=== PATIENT | female | born 2000 | race Caucasian/White ===

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

== ENCOUNTER → 2019-12-26 16:08 | Outpatient (CLI) | payer MEDICAID, SELFPAY ==
[2019-12-26 18:13] LABS: Prolactin 11.2 ng/mL
[2019-12-29 03:06] LABS: Chlamydia By Nucleic Acid AMP Negative (Negative)
[2019-12-29 06:31] LABS: Gonococcus By Nucleic Acid AMP Negative (Negative)
== END ==
PROVIDERS: Visit Provider Obstetrics & Gynecology
DX: O92.6 Galactorrhea (principal); Z11.3 Encounter for screening for infections with a predominantly sexual mode of transmission
CPT/HCPCS: 36415; 84146; 87491; 87591

== ENCOUNTER → 2020-01-05 14:52 | Outpatient (CLI) | payer MEDICAID, SELFPAY ==
--- NOTE | 2020-01-05 15:09 | US_ITS ---
STUDY: ULTRASOUND BREAST - LEFT REASON FOR EXAM: Female, 19 years old. Nipple discharge in the left breast. TECHNIQUE: Axial and longitudinal images of the LEFT breast were performed with a high resolution ultrasound transducer. # OF IMAGES: 35 COMPARISON: None. FINDINGS: LEFT Breast: The retroareolar region of the left breast was examined by ultrasound. There is evidence of a dilated retroareolar ducts. US/Breast Limited Unilateral IMPRESSION: Dilated retroareolar ducts. ASSESSMENT CATEGORY: BIRADS Category 2: Benign. A letter regarding these results will be sent to the patient by the facility within 30 days. Electronically Signed: Jean Pierre Cooper, at 15:34 EST , Service support ,
== END ==
PROVIDERS: Referring Provider Obstetrics & Gynecology; Visit Provider Obstetrics & Gynecology
DX: O92.6 Galactorrhea (principal)
CPT/HCPCS: 76642

== ENCOUNTER 2021-05-27 15:06 | Outpatient (CLI) | payer MEDICAID, SELFPAY ==
[2021-06-04 11:09] LABS: Chlamydia By Nucleic Acid AMP Negative (Negative)
[2021-06-04 12:30] LABS: Gonococcus By Nucleic Acid AMP Negative (Negative); HPV Reflexed? NOT INDICATED
== END 2021-05-27 23:59 | disposition home or self-care (01) ==
LOC: WOBLAB 15:08
PROVIDERS: Visit Provider Obstetrics & Gynecology
DX: Z12.4 Encounter for screening for malignant neoplasm of cervix (principal)
CPT/HCPCS: 87491; 87591; 88142

== ENCOUNTER → 2022-01-12 | Outpatient (CLI) | payer MEDICAID, SELFPAY ==
[2022-01-12 17:25] LABS: Absolute Lymphocyte Count 2.37 X10^3/uL (0.83-4.51); Absolute Neutrophil Count 7.9 X10^3/uL (2.0-7.7); Basophil# 0.04 X10^3/uL; Basophil% 0.4 % (0-1); Eosinophil# 0.07 X10^3/uL; Eosinophils% 0.6 % (0-5); Hematocrit 41.3 % (37-47); Hemoglobin 14.1 g/dL (12.0-15.0); Lymphocyte # 2.37 X10^3/ul (0.83-4.51); Lymphocyte % 21.1 % (19-41); Mean Corp Hgb Conc 34.1 g/dL (32-36); Mean Corpuscular Hgb 28.5 pg (27.0-32.0); Mean Corpuscular Volume 83.4 fL (81-99); Mean Platelet Vol. 9.3 fl (6.2-12.0); Monocyte# 0.77 X10^3/uL; Monocyte% 6.9 % (0-10); NRBC Flagged by Analyzer 0 % (0-5); Neutrophil # 7.94 X10^3/uL (2.7-7.7); Neutrophil % 70.6 % (47-70); Platelet Count 242 K/mm3 (150-450); RBC Distribution Width CV 12.7 % (11.6-14.6); RBC Distribution Width SD 38.1 fl (35.1-43.9); Red Blood Count 4.95 M/mm3 (4.2-5.4); White Blood Count 11.2 K/mm3 (4.4-11.0)
[2022-01-13 08:58] LABS: HIV - WCH Non-Reactive (Nonreactive); Hepatitis B Surface Antigen Non-Reactive (Nonreactive); Hepatitis C Antibody Non-Reactive (Nonreactive); Rubella IgG Reactive (Nonreactive); Syphilis Antibodies Non-reactive
[2022-01-14 17:03] LABS: V-Zoster IgG (Immunity) 250 index (Immune >165)
[2022-01-14 21:07] LABS: Chlamydia By Nucleic Acid AMP Negative (Negative)
[2022-01-15 15:45] LABS: Gonococcus By Nucleic Acid AMP Negative (Negative)
== END | disposition home or self-care (01) ==
LOC: WOBLAB 16:18
PROVIDERS: Visit Provider Obstetrics & Gynecology
DX: Z34.81 Encounter for supervision of other normal pregnancy, first trimester (principal)
CPT/HCPCS: 36415; 85025; 86703; 86762; 86780; 86787; 86803; 87086; 87088; 87340; 87491; 87591

== ENCOUNTER → 2022-04-09 | Outpatient (CLI) | payer MEDICAID, SELFPAY ==
--- NOTE | 2022-04-09 12:49 | US_ITS ---
STUDY: SECOND AND THIRD TRIMESTER OBSTETRICAL ULTRASOUND REASON FOR EXAM: Female, 21 years old ANATOMY LMP: 11/08/2021. TECHNIQUE: Transabdominal TECHNICAL QUALITY: Adequate. PRIOR ULTRASOUND: None. FINDINGS: There is a single intrauterine fetus. The fetus is in a breech presentation. There is demonstrated cardiac activity with a heart rate of 145 bpm. There is a normal amniotic fluid volume. The largest amniotic fluid pocket measures 5.6 cm. The amniotic fluid index (YESICA) is within normal limits. The placenta is fundal and posterior in location. There are Grade 0 placental changes. The cervix measures 5 cm in length. The bilateral adnexal regions were visualized. There is a 4 cm x 4.2 cm x 4.4 cm right ovarian cyst. BIOMETRY: BPD: 4.93 cm: 20 weeks, 6 days HC: 19.42 cm: 21 weeks, 5 days AC: 18.53 cm: 23 weeks, 2 days FL: 3.57 cm: 27 weeks, 2 days CI: 71% FL/BPD: 72% FL/HC: FL/AC: 19% HC/AC: 1.05 age by current US: 21 weeks, 4 days. EHSAN by current US: 08/16/2022. Estimated weight: 492 grams, +/- 74 grams, 73 %. Age by LMP: 21 weeks, 5 days. EHSAN by LMP: 12/15/2022. ANATOMY: Gender: Female Cranium: Normal lateral ventricles. Normal choroid plexus. Normal cerebellum. Normal cisterna magna. Normal face, nose and lips. Chest: Normal 4-chamber heart. Abdomen/Pelvis: Normal diaphragm. Normal stomach. Normal abdominal wall. Normal cord insertion. Normal 3 vessel cord. Normal kidneys. Normal bladder. Spine: Normal cervical spine. Normal thoracic spine. Normal lumbar spine. Normal sacrum. Extremities: Normal bilateral upper extremities. Normal bilateral lower extremities. US/OB Anatomy Scan IMPRESSION: Single live uterine gestation with mean gestational age of 21 weeks and 4 days. There is a 4 cm x 4.2 cm x 4.4 cm right ovarian cyst. Electronically Signed: Jean Pierre Cooper MD at 15:31 EST ,
== END | disposition home or self-care (01) ==
PROVIDERS: Visit Provider Obstetrics & Gynecology
DX: Z34.82 Encounter for supervision of other normal pregnancy, second trimester (principal); Z3A.20 20 weeks gestation of pregnancy
CPT/HCPCS: 76805

== ENCOUNTER → 2022-05-07 | Outpatient (CLI) | payer MEDICAID, SELFPAY ==
[2022-05-07 17:13] LABS: Absolute Lymphocyte Count 1.74 X10^3/uL (0.83-4.51); Absolute Neutrophil Count 7.7 X10^3/uL (2.0-7.7); Basophil# 0.04 X10^3/uL; Basophil% 0.4 % (0-1); Eosinophil# 0.09 X10^3/uL; Eosinophils% 0.9 % (0-5); Hematocrit 36.9 % (37-47); Hemoglobin 12.8 g/dL (12.0-15.0); Lymphocyte # 1.74 X10^3/ul (0.83-4.51); Lymphocyte % 16.6 % (19-41); Mean Corp Hgb Conc 34.7 g/dL (32-36); Mean Corpuscular Volume 86.6 fL (81-99); Mean Platelet Vol. 9.4 fl (6.2-12.0); Monocyte# 0.74 X10^3/uL; NRBC Flagged by Analyzer 0 % (0-5); Neutrophil # 7.74 X10^3/uL (2.7-7.7); Neutrophil % 73.7 % (47-70); Platelet Count 213 K/mm3 (150-450); RBC Distribution Width CV 13.4 % (11.6-14.6); RBC Distribution Width SD 41.7 fl (35.1-43.9); Red Blood Count 4.26 M/mm3 (4.2-5.4); White Blood Count 10.5 K/mm3 (4.4-11.0)
[2022-05-07 17:56] LABS: Glucose Challenge Gest 1H 50g 132 mg/dL (70-140)
[2022-05-07 18:27] LABS: Syphilis Antibodies Non-reactive
== END | disposition home or self-care (01) ==
LOC: WOBLAB 16:34
PROVIDERS: Visit Provider Obstetrics & Gynecology
DX: Z34.82 Encounter for supervision of other normal pregnancy, second trimester (principal)
CPT/HCPCS: 36415; 82950; 85025; 86780

== ENCOUNTER → 2022-07-22 | Outpatient (CLI) | payer MEDICAID, SELFPAY ==
[2022-07-22 17:02] LABS: Hematocrit 36.1 % (37-47); Hemoglobin 12.3 g/dL (12.0-15.0); Mean Corp Hgb Conc 34.1 g/dL (32-36); Mean Corpuscular Hgb 28.1 pg (27.0-32.0); Mean Corpuscular Volume 82.6 fL (81-99); Mean Platelet Vol. 10.5 fl (6.2-12.0); Platelet Count 216 K/mm3 (150-450); RBC Distribution Width SD 39.4 fl (35.1-43.9); Red Blood Count 4.37 M/mm3 (4.2-5.4); White Blood Count 9.4 K/mm3 (4.4-11.0)
== END | disposition home or self-care (01) ==
LOC: WOBLAB 16:09
PROVIDERS: Visit Provider Obstetrics & Gynecology
DX: Z36.85 Encounter for antenatal screening for Streptococcus B (principal)
CPT/HCPCS: 36415; 85027; 87081

== ENCOUNTER 2022-08-13 07:10 | Inpatient (IN) | payer MEDICAID, SELFPAY ==
[2022-08-13] VITALS (48 sets, daily range): BP systolic 99–154; BP diastolic 49–92; PULSE 68–128; TEMP 36.3–36.8; O2SAT 83–100; BMI 37.9
[2022-08-13] MEDS: Lactated Ringers 1,000 ML 50 ML IV (08:30)
--- NOTE | 2022-08-13 08:44 | PCM.HP.BLA ---
History and Physical Date of Admission: 08/13/22 Chief complaint: Induction of labor at term History present illness: 22-year-old at 39 weeks and 5 days with EHSAN 08/15/2022 arrives for induction of labor at term. Denies headache, vision changes, chest pain, shortness of breath, nausea vomit, right upper quadrant pain. Patient states good movement. is complicated by LGA, BMI 37 Obstetric history: G1: 41-week female 6 pounds 13 ounces G2: Current Past medical history: None Medications: vitamin Allergies: No known drug allergies Past surgical history: Tonsils and adenoids Social history: Denies smoking, alcohol use, drug use Family history: Denies history DVT or PE Review of systems: Besides above pertinent positives a full view of systems was performed and found to be negative Physical exam: Vitals: Pending General: Normal appearing no acute distress HEENT: Normocephalic atraumatic no cervical lymphadenopathy Cardiac/respiratory: No successor muscles, nonlabored breathing Abdomen: Soft, nontender, gravid Extremities: No peripheral edema normal peripheral pulses Psych: Normal affect and remainder nonpressured speech Lab: Pending Assessment plan: 22-year-old at 39 weeks and 5 days arrives for induction of labor at term Admit labor and delivery CEFM GBS negative Cytotec induction LGA: Discussed baby's weight and given options for induction versus primary section risk benefits alternatives. Discussed risks for LGA and discussed risk for shoulder dystocia. Patient states understanding wish to proceed with induction of labor Anesthesia to see
[2022-08-13] MEDS: miSOPROStol 25 MCG TABLET VAGINAL (09:07)
[2022-08-13 09:15] LABS: Absolute Lymphocyte Count 1.74 X10^3/uL (0.83-4.51); Absolute Neutrophil Count 6.1 X10^3/uL (2.0-7.7); Basophil# 0.03 X10^3/uL; Basophil% 0.3 % (0-1); Eosinophil# 0.06 X10^3/uL; Eosinophils% 0.7 % (0-5); Hematocrit 34.5 % (37-47); Hemoglobin 11.6 g/dL (12.0-15.0); Lymphocyte # 1.74 X10^3/ul (0.83-4.51); Lymphocyte % 19.5 % (19-41); Mean Corp Hgb Conc 33.6 g/dL (32-36); Mean Corpuscular Hgb 27.4 pg (27.0-32.0); Mean Corpuscular Volume 81.4 fL (81-99); Mean Platelet Vol. 10.8 fl (6.2-12.0); Monocyte# 0.96 X10^3/uL; Monocyte% 10.8 % (0-10); NRBC Flagged by Analyzer 0 % (0-5); Neutrophil # 6.08 X10^3/uL (2.7-7.7); Neutrophil % 68.1 % (47-70); Platelet Count 208 K/mm3 (150-450); RBC Distribution Width CV 13.3 % (11.6-14.6); RBC Distribution Width SD 39.3 fl (35.1-43.9); Red Blood Count 4.24 M/mm3 (4.2-5.4); White Blood Count 8.9 K/mm3 (4.4-11.0)
[2022-08-13 09:39] LABS: Syphilis Antibodies Non-reactive
[2022-08-13] MEDS: Oxytocin 15 Units/NS 250ml 15 UNITS/250 ML IV.SOLN 2 UNITS IV (13:22)
[2022-08-13] MEDS: LACTATED RINGERS 500 ML 999 ML IV (15:34)
[2022-08-13] MEDS: fentaNYL-bupivacaine (epidural) 100 ML BAG EPIDURAL (16:55)
--- NOTE | 2022-08-13 17:25 | PN.OBGYN_ITS ---
Subjective Subjective Patient now comfortable with epidural Objective Data Objective Data Vital Signs: Vital Signs Temp Pulse BP Pulse Ox 98.2 F 93 141/61 H 83 08/13/22 13:20 08/13/22 16:59 08/13/22 16:59 08/13/22 17:00 Weight: 228 lb Body Mass Index (BMI) 37.9 Intake & Output: Intake and Output for Last 24 Hours 08/11/22 08/12/22 08/13/22 23:59 23:59 23:59 Intake Total 1366.80 / 1366.80 Output Total 200 / 200 Balance 1166.80 / 1166.80 Lab / Micro Data Result Diagrams: 08/13/22 09:04 Labs: Laboratory Results - last 24 hr 08/13/22 08:30: WBC Cancelled, Corrected WBC Cancelled, RBC Cancelled, Hgb Cancelled, Hct Cancelled, MCV Cancelled, MCH Cancelled, MCHC Cancelled, RDW Std Deviation Cancelled, RDW Coeff of Margarita Cancelled, Plt Count Cancelled, MPV Cancelled, Immature Gran % (Auto) Cancelled, Neut % (Auto) Cancelled, Lymph % (Auto) Cancelled, [place] % (Auto) Cancelled, Eos % (Auto) Cancelled, Baso % (Auto) Cancelled, Absolute Neuts (auto) Cancelled, Absolute Lymphs (auto) Cancelled, Total Counted Cancelled, Neutrophils % (Manual) Cancelled, Band Neutrophils % Cancelled, Lymphocytes % (Manual) Cancelled, Monocytes % (Manual) Cancelled, Eosinophils % (Manual) Cancelled, Basophils % (Manual) Cancelled, Metamyelocytes % Cancelled, Myelocytes % Cancelled, Promyelocytes % Cancelled, Blast Cells % Cancelled, Plasma Cell % (Manual) Cancelled, Other Cells % Cancelled, Nucleated RBC % Cancelled, Nucleated RBCs/100 WBC Cancelled, Differential Comment Cancelled, Diff Path Review Cancelled, Hypersegmented Neuts Cancelled, Atypical Lymphocytes Cancelled, Reactive Lymphocytes Cancelled, Smudge Cells Cancelled, Toxic Granulation Cancelled, Toxic Vacuolation Cancelled, Dohle Bodies Cancelled, Perry Rods Cancelled, Platelet Estimate Cancelled, Plt Morphology Comment Cancelled, RBC Morphology Cancelled, Polychromasia Cancelled, Hypochromasia Cancelled, Poikilocytosis Cancelled, Basophilic Stippling Cancelled, Anisocytosis Cancelled, Microcytosis Cancelled, Macrocytosis Ca ncelled, Spherocytes Cancelled, Sickle Cells Cancelled, Target Cells Cancelled, Tear Drop Cells Cancelled, Ovalocytes Cancelled, Stomatocytes Cancelled, [place] Bodies Cancelled, [place] Cells Cancelled, Bite Cells Cancelled, Crenated Cell Cancelled, Acanthocytes (Spur) Cancelled, Rouleaux Cancelled, Schistocytes Cancelled 08/13/22 08:30: Blood Type O POSITIVE, Antibody Screen NEGATIVE 08/13/22 08:30: Syphilis Total Ab Non-reactive 08/13/22 09:04: WBC 8.9, RBC 4.24, Hgb 11.6 L, Hct 34.5 L, MCV 81.4, MCH 27.4, MCHC 33.6, RDW Std Deviation 39.3, RDW Coeff of Margarita 13.3, Plt Count 208, MPV 10.8, Immature Gran % (Auto) 0.600, Neut % (Auto) 68.1, Lymph % (Auto) 19.5, Mo no % (Auto) 10.8 H, Eos % (Auto) 0.7, Baso % (Auto) 0.3, Absolute Neuts (auto) 6.1, Absolute Lymphs (auto) 1.74, Nucleated RBC % 0 Physical Exam Const alert, oriented x3, no apparent distress, average body habitus, healthy a ppearing and well nourished HEENT normocephalic and moist oral mucous membranes Eyes PERRL Neck full ROM Resp normal respiratory effort, no retractions and no use of accessory muscles GI GI Narrative: Soft, nontender, gravid Narrative: Cervical exam: /-1. AROM clear fluid Extremity normal to inspection, full ROM and no clubbing, cyanosis or edema Neuro moves all extremities and no focal motor deficits Psych mental status grossly normal, affect normal, speech normal and activity/motor behavior normal Assessment & Plan (1) : PLAN: Patient seen and examined. Now comfortable with epidural. Currently on Pitocin. Educated patient on AROM wrist benefits alternatives patient agrees. AROM clear fluid. We will continue to titrate Pitocin. Educated patient on care plan, all questions answered
[2022-08-13] MEDS: Ondansetron 4 MG/2 ML Vial IV (17:28)
[2022-08-13] MEDS: Lactated Ringers 1,000 ML 200 ML IV (19:30)
--- NOTE | 2022-08-13 19:40 | PCM.PN.OB ---
Subjective Subjective Patient overall comfortable with epidural Objective Data Objective Data Vital Signs: Vital Signs Temp Pulse BP Pulse Ox 98.2 F 77 118/51 L 94 08/13/22 13:20 08/13/22 18:43 08/13/22 18:43 08/13/22 18:42 Weight: 228 lb Body Mass Index (BMI) 37.9 Intake & Output: Intake and Output for Last 24 Hours 08/11/22 08/12/22 08/13/22 23:59 23:59 23:59 Intake Total 1802.63 / 1802.63 Output Total 200 / 200 Balance 1602.63 / 1602.63 Lab / Micro Data Result Diagrams: 08/13/22 09:04 Labs: Laboratory Results - last 24 hr 08/13/22 08:30: WBC Cancelled, Corrected WBC Cancelled, RBC Cancelled, Hgb Cancelled, Hct Cancelled, MCV Cancelled, MCH Cancelled, MCHC Cancelled, RDW Std Deviation Cancelled, RDW Coeff of Margarita Cancelled, Plt Count Cancelled, MPV Cancelled, Immature Gran % (Auto) Cancelled, Neut % (Auto) Cancelled, Lymph % (Auto) Cancelled, [place] % (Auto) Cancelled, Eos % (Auto) Cancelled, Baso % (Auto) Cancelled, Absolute Neuts (auto) Cancelled, Absolute Lymphs (auto) Cancelled, Total Counted Cancelled, Neutrophils % (Manual) Cancelled, Band Neutrophils % Cancelled, Lymphocytes % (Manual) Cancelled, Monocytes % (Manual) Cancelled, Eosinophils % (Manual) Cancelled, Basophils % (Manual) Cancelled, Metamyelocytes % Cancelled, Myelocytes % Cancelled, Promyelocytes % Cancelled, Blast Cells % Cancelled, Plasma Cell % (Manual) Cancelled, Other Cells % Cancelled, Nucleated RBC % Cancelled, Nucleated RBCs/100 WBC Cancelled, Differential Comment Cancelled, Diff Path Review Cancelled, Hypersegmented Neuts Cancelled, Atypical Lymphocytes Cancelled, Reactive Lymphocytes Cancelled, Smudge Cells Cancelled, Toxic Granulation Cancelled, Toxic Vacuolation Cancelled, Dohle Bodies Cancelled, Perry Rods Cancelled, Platelet Estimate Cancelled, Plt Morphology Comment Cancelled, RBC Morphology Cancelled, Polychromasia Cancelled, Hypochromasia Cancelled, Poikilocytosis Cancelled, Basophilic Stippling Cancelled, Anisocytosis Cancelled, Microcytosis Cancelled, Macrocytosis Cancelled, Spherocytes Cancelled, Sickle Cells Cancelled, Target Cells Cancelled, Tear Drop Cells Cancelled, Ovalocytes Cancelled, Stomatocytes Cancelled, [place] Bodies Cancelled, [place] Cells Cancelled, Bite Cells Cancelled, Crenated Cell Cancelled, Acanthocytes (Spur) Cancelled, Rouleaux Cancelled, Schistocytes Cancelled 08/13/22 08:30: Blood Type O POSITIVE, Antibody Screen NEGATIVE 08/13/22 08:30: Syphilis Total Ab Non-reactive 08/13/22 09:04: WBC 8.9, RBC 4.24, Hgb 11.6 L, Hct 34.5 L, MCV 81.4, MCH 27.4, MCHC 33.6, RDW Std Deviation 39.3, RDW Coeff of Margarita 13.3, Plt Count 208, MPV 10.8, Immature Gran % (Auto) 0.600, Neut % (Auto) 68.1, Lymph % (Auto) 19.5, [place] % (Auto) 10.8 H, Eos % (Auto) 0.7, Baso % (Auto) 0.3, Absolute Neuts (auto) 6.1, Absolute Lymphs (auto) 1.74, Nucleated RBC % 0 Physical Exam Const alert, oriented x3, no apparent distress, average body habitus, healthy appearing and well nourished HEENT normocephalic and moist oral mucous membranes Eyes PERRL Neck full ROM Resp normal respiratory effort, no retractions and no use of accessory muscles GI GI Narrative: Soft, nontender, gravid Narrative: Cervical exam: 10/100/+1 Psych mental status grossly normal, affect normal, speech normal and activity/motor behavior normal Assessment & Plan (1) : PLAN: Called by nursing patient complete and started pushing. Arrived to room, exam as above. Coached patient through pushing. Discussed with patient and nursing to continue pushing with contractions
[2022-08-13] MEDS: Methylergonovine 0.2 MG/ML Ampul IM (20:30)
--- NOTE | 2022-08-13 20:34 | EX.PCM.OBRPT ---
Vaginal Delivery Findings Description of Procedure: Normal spontaneous vaginal delivery of a viable female , vertex GENESIS. Head and shoulders delivered with ease. Cord clamped and cut. Baby handed off to patient. Placenta delivered via cord traction and fundal massage intact. IV oxytocin given per protocol, prophylactic IM Methergine given with likely LGA . Bilateral labial and first-degree midline perineal laceration noted and repaired in typical fashion. EBL 250 cc Apgars 9/9
[2022-08-13] MEDS: Oxytocin 15 Units/NS 250ml 15 UNITS/250 ML IV.SOLN 83 UNITS IV (20:50)
[2022-08-13] MEDS: Ibuprofen 600 MG Tablet PO (23:32)
[2022-08-14 02:23] VITALS: BP 128/60; PULSE 77; RESP 16; TEMP 36.1; O2SAT 95
[2022-08-14 06:00] VITALS: BP 128/72; PULSE 81; RESP 16; TEMP 36.2; O2SAT 95
[2022-08-14 08:00] VITALS: BP 138/84; PULSE 96; RESP 16; TEMP 36.5; O2SAT 99
--- NOTE | 2022-08-14 08:24 | PN.OBGYN_ITS ---
Subjective Subjective No overnight complaints Objective Data Objective Data Vital Signs: Vital Signs Temp Pulse Resp BP Pulse Ox O2 Del Method 97.1 F L 81 16 128/72 H 95 Room Air 08/14/22 06:00 08/14/22 06:00 08/14/22 06:00 08/14/22 06:00 08/14/22 06:00 08/14/22 06:00 Oxygen Delivery Method Room Air Weight: 228 lb Body Mass Index (BMI) 37.9 Intake & Output: Intake and Output for Last 24 Hours 08/12/22 08/13/22 08/14/22 23:59 23:59 23:59 Intake Total 2398.90 / 2398.90 Output Total 450 / 450 200 / 200 Balance 1948.90 / 1948.90 -200 / -200 Lab / Micro Data Result Diagrams: 08/13/22 09:04 Labs: Laboratory Results - last 24 hr 08/13/22 08:30: WBC Cancelled, Corrected WBC Cancelled, RBC Cancelled, Hgb Cancelled, Hct Cancelled, MCV Cancelled, MCH Cancelled, MCHC Cancelled, RDW Std Deviation Cancelled, RDW Coeff of Margarita Cancelled, Plt Count Cancelled, MPV Cancelled, Immature Gran % (Auto) Cancelled, Neut % (Auto) Cancelled, Lymph % (Auto) Cancelled, [place] % (Auto) Cancelled, Eos % (Auto) Cancelled, Baso % (Auto) Cancelled, Absolute Neuts (auto) Cancelled, Absolute Lymphs (auto) Cancelled, Total Counted Cancelled, Neutrophils % (Manual) Cancelled, Band Neutrophils % Cancelled, Lymphocytes % (Manual) Cancelled, Monocytes % (Manual) Cancelled, E osinophils % (Manual) Cancelled, Basophils % (Manual) Cancelled, Metamyelocytes % Cancelled, Myelocytes % Cancelled, Promyelocytes % Cancelled, Blast Cells % Cancelled, Plasma Cell % (Manual) Cancelled, Other Cells % Cancelled, Nucleated RBC % Cancelled, Nucleated RBCs/100 WBC Cancelled, Differential Comment Cancelled, Diff Path Review Cancelled, Hypersegmented Neuts Cancelled, Atypical Lymphocytes Cancelled, Reactive Lymphocytes Cancelled, Smudge Cells Cancelled, Toxic Granulation Cancelled, Toxic Vacuolation Cancelled, Dohle Bodies Cancelled, Perry Rods Cancelled, Platelet Estimate Cancelled, Plt Morphology Comment Cancelled, RBC Morphology Cancelled, Polychromasia Cancelled, Hypochromasia Cancelled, Poikilocytosis Cancelled, Basophilic Stippling Cancelled, Anisocytosis Cancelled, Microcytosis Cancelled, Macrocytosis Cancelled, Spherocytes Cancelled, Sickle Cells Cancelled, Target Cells Cancelled, Tear Drop Cells Cancelled, Ovalocytes Cancelled, Stomatocytes Cancelled, [place] Bodies Cancelled, [place] Cells Cancelled, Bite Cells Cancelled, Crenated Cell Cancelled, Acanthocytes (Spur) Cancelled, Rouleaux Cancelled, Schistocytes Cancelled 08/13/22 08:30: Blood Type O POSITIVE, Antibody Screen NEGATIVE 08/13/22 08:30: Syphilis Total Ab Non-reactive 08/13/22 09:04: WBC 8.9, RBC 4.24, Hgb 11.6 L, Hct 34.5 L, MCV 81.4, MCH 27.4, MCHC 33.6, RDW Std Deviation 39.3, RDW Coeff of Margarita 13.3, Plt Count 208, MPV 10.8, Immature Gran % (Auto) 0.600, Neut % (Auto) 68.1, Lymph % (Auto) 19.5, [place] % (Auto) 10.8 H, Eos % (Auto) 0.7, Baso % (Auto) 0.3, Absolute Neuts (auto) 6.1, Absolute Lymphs (auto) 1.74, Nucleated RBC % 0 Physical Exam Const alert, oriented x3, no apparent distress, average body habitus, healthy appearing and well nourished HEENT normocephalic and moist oral mucous membranes Eyes PERRL Neck full ROM Resp normal respiratory effort, no retractions and no use of accessory muscles GI GI Narrative: Soft, nontender, uterus firm and below umbilicus Extremity normal to inspection, full ROM and no clubbing, cyanosis or edema Neuro moves all extremities and no focal motor deficits Psych mental status grossly normal, affect normal, speech normal and activity/motor behavior normal Assessment & Plan (1) (spontaneous vaginal delivery): PLAN: day 1. Breast-feeding. Pain well controlled. Likely home tomorrow
[2022-08-14 11:40] VITALS: BP 143/85; PULSE 82; RESP 16; TEMP 36.4
[2022-08-14] MEDS: Ibuprofen 600 MG Tablet PO (16:03)
[2022-08-14 16:21] VITALS: BP 135/87; PULSE 83; RESP 16
--- NOTE | 2022-08-14 18:32 | CASEMGMT ---
Social Work Brief Assessment Labor and Delivery Unit Patient Address: [address] [place] [address] Phone number: [phone] Date of Referral/Notification: 08/14/2022 Time of Referral: [phone] Referred By: Dr. Calabrese Date of Intervention: 08/15/2019 Time of Intervention: 1829 Reason for Referral: 4.5-year-old sibling has left worsening Informant: Medical record and mother of baby (MOB) Lurdes Reyes History: MOB is a 22-year-old single female, involved with the father of baby (FOB) and Joseashkan Woodviji. During private conversation with the MOB, MOB denied any type of abuse or control. Reports relationship is better than when had first child, indicating that both have grown and matured. MOB with reported adequate care. 2, para 1 now 2 after delivering infant growth this admission. [place] infant's Carlota (08/13/2022) and then an older child Corinne at home. Carlota's weight was 4425 g. Apgars 9 and 9 at 1 and 5 minutes of life. No reports or indication of any substance abuse. Prior social work history MOB indicated to try marijuana 1 time in the past but this was prior to . Denies any cramping currently. MOB has history of depression and anxiety though no formal diagnosis. Denies any suicidal ideations. NATHAN's mother is thought to have bipolar disorder, but again no formal diagnosis. MOB and FOB have high school education's. NATHAN is a [id number] mother and FOB is a material handling crew supervisor for [employer]. MOB denies any type of children services involvement or history since Corinne has been born. Reports history of help me grow but nothing current. MOB does indicate that the older daughter at home has a history of lead poisoning, which MOB believes came from the Lego type toys that were purchased from a garage sale. MOB reports has thrown the toys out and has taken the child to all necessary appointments and is keeping on top of making sure the child is okay. MOB reports that even high in the home tested for lead which is come back negative. Assessment: Met with MOB and FOB in room, introducing to self and social work role. Talked with parents together and both equally participated in conversation. Spoke along with the MOB to allow for some private conversation and further exploration about any concerns regarding depression anxiety or any safety concerns at home with the FOB. MOB and FOB report to have all necessary supplies to care for the , reports to have stable housing and lives with the FOB's grandfather since November 2017. Parents report this is a stable home situation. No social determinants of health concerns other than the older child having some lead poisoning. MOB describes taking all proper precautions for the child and taking the child to medical appointments. No voiced concerns by nursing staff regarding parent child interactions or bonding. Provided MOB with resources for [facility] and information on mood and anxiety disorders. MOB reports she echo by being outside and listening to music. Plan: MOB and infant will discharge home when medically ready. Resources have been provided for home-going. No further needs requested or indicated. -RENO Antoine, VERONICA *This note was generated with [employer] dictation software. It may contain incorrect words, spelling, and punctuation that were not noted in review of the chart prior to signing*
[2022-08-14 20:33] VITALS: BP 128/88; PULSE 88; RESP 16; TEMP 36.5; O2SAT 97
[2022-08-15 02:00] VITALS: BP 136/80; PULSE 87; RESP 16; TEMP 36.6; O2SAT 97
[2022-08-15] MEDS: Ibuprofen 600 MG Tablet PO (03:19)
[2022-08-15 07:51] VITALS: BP 124/77; PULSE 80; RESP 16; TEMP 36.7; O2SAT 98
--- NOTE | 2022-08-15 08:38 | PCM.DC.BLA ---
Discharge Summary Date of Admission: 08/13/22 Date of Discharge: 08/15/22 Summary: Patient arrived on 08/13/2022 for induction of labor at term. Subsequently delivered vaginally on 08/13/2022. Routine recovery and discharged home on 08/15/2022 Meaningful Use Info Meaningful Use Diagnoses (Choose all that apply): None applicable Discharge Plan Admission Admit Date/Time: 08/13/22 07:10 Primary Reason for Your Visit: Induction of labor Attending Provider: Luis A Figueroa Primary Care Provider: Care Physician,Isabell Primary Instructions Additional Instructions / Restrictions: Regular diet. Weightbearing as tolerated. Okay to shower. No intercourse for 4 to 6 weeks. Call if fevers, chills. Follow-up 4 to 6 weeks Discharge Orders/Prescriptions Prescriptions: No Action One Daily Tablet 1 tab PO DAILY ibuprofen 600 MG tablet 600 mg PO TID PRN (Reason: Pain) Qty: 30 0RF Rx Instructions: not used in docusate sodium 100 MG capsule 100 mg PO BID PRN PRN (Reason: Constipation) Qty: 60 0RF Referrals / Follow Up: Care Physician,No Primary [Primary Care Provider] - Disposition Disposition (needs filled in before D/C Order can be placed): Home, Self Care
--- NOTE | 2022-08-15 08:40 | PCM.PN.OB ---
Subjective Subjective No overnight complaint Objective Data Objective Data Vital Signs: Vital Signs Temp Pulse Resp BP Pulse Ox O2 Del Method 98.0 F 80 16 124/77 H 98 Room Air 08/15/22 07:51 08/15/22 07:51 08/15/22 07:51 08/15/22 07:51 08/15/22 07:51 08/15/22 07:51 Oxygen Delivery Method Room Air Weight: 228 lb Body Mass Index (BMI) 37.9 Intake & Output: Intake and Output for Last 24 Hours 08/13/22 08/14/22 08/15/22 23:59 23:59 23:59 Intake Total 2398.90 / 2398.90 Output Total 450 / 450 600 / 600 Balance 1948.90 / 1948.90 -600 / -600 Lab / Micro Data Result Diagrams: 08/13/22 09:04 Physical Exam Const alert, oriented x3, no apparent distress, average body habitus, healthy appearing and well nourished HEENT normocephalic and moist oral mucous membranes Eyes PERRL Neck full ROM Resp normal respiratory effort, no retractions and no use of accessory muscles GI GI Narrative: Soft, nontender, uterus firm and below umbilicus Extremity normal to inspection, full ROM and no clubbing, cyanosis or edema Neuro moves all extremities and no focal motor deficits Psych mental status grossly normal, affect normal, speech normal and activity/motor behavior normal Assessment & Plan (1) (spontaneous vaginal delivery): PLAN: day 2. Breast-feeding. Pain well controlled. Okay to discharge home today
== END 2022-08-15 10:51 | disposition home or self-care (01) | DRG 560 ==
PROVIDERS: Admitting Provider Obstetrics & Gynecology; Referring Provider Obstetrics & Gynecology; Visit Provider Obstetrics & Gynecology
DX: O36.63X0 Maternal care for excessive fetal growth, third trimester, not applicable or unspecified (principal); Z37.0 Single live birth; O70.0 First degree perineal laceration during delivery; Z3A.39 39 weeks gestation of pregnancy
CPT/HCPCS: 36415; 59025; 59050; 85025; 86780; 86850; 86900; 86901; 99221; J7120; G0378; J2405